=== PATIENT | male | born 1990 | race Caucasian/White ===

== ENCOUNTER 2016-11-28 03:54 | Emergency (ER) | payer SELFPAY ==
[2016-11-28 04:00] VITALS: BP 122/73
[2016-11-28] MEDS ORDERED: ONDANSETRON ODT 4 MG TAB.RAPDIS ONE (04:28)
[2016-11-28 04:48] LABS: HEMOGLOBIN ISTAT 17.3 gm/dL; POTASSIUM ISTAT 3.9 mmol/L (3.5-5.0)
[2016-11-28] MEDS ORDERED: ONDA8TAB12 PO (05:19)
--- NOTE | 2016-11-28 05:19 | PHYS DOC ---
Adult General Chief Complaint Chief Complaint: NAUSEA/VOMITING/DIARRHEA HPI HPI 26-year-old male with a history of heroin and cocaine abuse with last IV use of heroin several days ago, now presents the emergency department complaining of withdrawal symptoms. Patient states it is not of any active vomiting but he had nausea at home and has not been drinking lots of fluids. Tonight he felt lightheaded and his mother noticed so she insisted he come to the emergency department for evaluation. [place] complaints other than feeling mildly generally weak. No active vomiting or diarrhea. Denies abdominal pain or chest pain. No headache or stiff neck. Review of Systems Review of Systems Constitutional: Denies fever or chills [] Eyes: Denies change in visual acuity, redness, or eye pain [] HENT: Denies nasal congestion or sore throat [] Respiratory: Denies cough or shortness of breath [] Cardiovascular: No additional information not addressed in HPI [] GI: Denies abdominal pain, nausea, vomiting, bloody stools or diarrhea [] : Denies dysuria or hematuria [] Musculoskeletal: Denies back pain or joint pain [] Integument: Denies rash or skin lesions [] Neurologic: Denies headache, focal weakness or sensory changes [] Endocrine: Denies polyuria or polydipsia [] Current Medications Current Medications Current Medications Medications (Trade) Dose Ordered Sig/[facility] Start Time Stop Time Status Last Admin Dose Admin Ondansetron HCl (Zofran Odt) 4 mg STK-MED ONCE 11/28/16 04:28 11/28/16 04:29 DC Physical Exam Physical Exam Constitutional: Well developed, well nourished, no acute distress, non-toxic appearance. [] HENT: Normocephalic, atraumatic, bilateral external ears normal, oropharynx moist, no oral exudates, nose normal. [] Eyes: PERRLA, EOMI, conjunctiva normal, no discharge. [] Neck: Normal range of motion, no tenderness, supple, no stridor. [] Cardiovascular:Heart rate regular rhythm, no murmur [] Lungs & Thorax: Bilateral breath sounds clear to auscultation [] Abdomen: Bowel sounds normal, soft, no tenderness, no masses, no pulsatile masses. [] Skin: Warm, dry, no erythema, no rash. [] Back: No tenderness, no CVA tenderness. [] Extremities: No tenderness, no cyanosis, no clubbing, ROM intact, no edema. [] Neurologic: Alert and oriented X 3, normal motor function, normal sensory function, no focal deficits noted. [] Psychologic: Affect normal, judgement normal, mood normal. [] Current Patient Data Lab Results Laboratory Tests Test 11/28/16 04:42 POC Hemoglobin 17.3 gm/dL POC Hematocrit 51 % POC Sodium 144 mmol/L (135-145) POC Potassium 3.9 mmol/L (3.5-5.0) POC Chloride 105 mmol/L (98-110) POC Total CO2 25 mmol/L (23-32) Anion Gap 20 mmol/L (6-14) H POC Blood Urea Nitrogen 19 mg/dL (8-26) POC Creatinine 0.9 mg/dL (0.5-1.4) Glucose Level 141 mg/dL (60-99) H POC Ionized Calcium (Merry) 1.07 mmol/L (1.13-1.32) L EKG EKG [] Radiology/Procedures Radiology/Procedures [] Course & Med Decision Making Course & Med Decision Making Pertinent Labs and Imaging studies reviewed. (See chart for details) [] Signs and symptoms consistent with mild symptoms of narcotic withdrawal in a patient with an extensive history of drug abuse. Vital signs unremarkable with no tachycardia or hypotension. I-STAT unremarkable except for mild hemoconcentration. Doses. Zofran given ODT and patient tolerating by mouth fluids. EKG was normal sinus rhythm at 56 normal axis no STEMI. No further workup or treatment indicated. We'll dispense prescription for Zofran. Patient agrees with outpatient follow-up and strict return precautions given Dragon Disclaimer Dragon Disclaimer This chart was dictated in whole or in part using Voice Recognition software in a busy, high-work load, and often noisy Emergency Department environment. It may contain unintended and wholly unrecognized errors or omissions. Departure Departure: Referrals: PCP,NO (PCP) Scripts Ondansetron (ZOFRAN ODT) 8 Mg Tab.rapdis 4 MG PO Q4-6HRS Y for NAUSEA, #10 Prov: KATHARINE ZALDIVAR MD 11/28/16 KATHARINE ZALDIVAR MD Nov 28, 2016 05:19
--- NOTE | 2016-11-28 06:17 | EKG ---
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
== END 2016-11-28 05:25 | disposition home or self-care (01) ==
LOC: ER 03:54
DX: R11.0 Nausea (principal); R42 Dizziness and giddiness; R53.1 Weakness; F14.10 Cocaine abuse, uncomplicated; F19.10 Other psychoactive substance abuse, uncomplicated
CPT/HCPCS: 80047; 93005; 99283-25

== ENCOUNTER 2016-11-29 09:53 | Emergency (ER) | payer SELFPAY ==
[~2016-11-29 09:53] MED LIST: ONDA8TAB12 PO
[2016-11-29] MEDS ORDERED: IV NORMAL SALINE 1,000ML 1,000 ML IV SCH ×2 (10:29→11:40)
[2016-11-29] MEDS ORDERED: PROMETHAZINE 25 MG/ML VIAL IV ONE (10:42)
--- NOTE | 2016-11-29 10:51 | PHYS DOC ---
General Chief Complaint: NAUSEA/VOMITING/DIARRHEA Stated Complaint: N/V, HASNT EATING IN FIVE DAYS Time Seen by MD: 10:14 Source: patient, old records Exam Limitations: no limitations Problems: History of Present Illness Initial Comments Patient is a 26-year-old male who comes to the ED complaining of nausea and vomiting. Patient has extensive history of substance abuse including marijuana cocaine and heroin. He has history of an addiction to cocaine and heroin and has gone through withdrawal in the past. He states he last used illicit substances 9 days ago and for the past 5 days has had by mouth intolerance, nausea and vomiting. He says all by mouth intake, comes back up immediately and he's had decreased urination. He was seen here yesterday for the same thing his labs were unremarkable symptoms improved with Zofran by mouth and he was discharged home with a prescription for Zofran. He says the Zofran isn't working, he's had mild generalized abdominal discomfort with one loose stool days ago. He feels overall weak and lightheaded. He also states that in the past is gone through withdrawal however symptoms lasted only 3 days. He is now claiming that his symptoms could be from food poisoning as he feels possible bad food at [employer] [facility] [employer] a few days ago. His parents are in the waiting room he has told them he has food poisoning and has requested we not reveal any information to them. He denies chest pain headache neck stiffness or difficulty breathing, no fever chills sweats or myalgias. ED vital signs: 98.4, 76, 18, 129/88, 99% RA Timing/Duration: other (5 days) Severity: moderate Modifying Factors: worse with eating Associated Symptoms: nausea/vomiting, weakness Allergies: Coded Allergies: No Known Drug Allergies (Unverified , 11/29/16) Past Medical History Medical History: other (polysubstance abuse) Surgical History: noncontributory Social History Smoker: cigarettes Alcohol: none Drugs: cocaine, heroin, marijuana Review of Systems Constitutional: denies chills, denies diaphoresis, denies fever, malaise, weakness Respiratory: denies cough, denies shortness of breath, denies wheezing Cardiovascular: denies chest pain, denies palpitations, denies syncope Gastrointestinal: see HPI Genitourinary: see HPI, denies dysuria, denies frequency, denies hematuria Musculoskeletal: denies back pain, denies joint swelling, denies neck pain Psychiatric/Neurological: denies headache, denies numbness, denies paresthesia Hematologic/Lymphatic: denies blood clots, denies easy bleeding, denies easy bruising Physical Exam General Appearance: no apparent distress, thin Eyes: bilateral eye normal inspection, bilateral eye PERRL, bilateral eye EOMI Ear, Nose, Throat: hearing grossly normal, normal ENT inspection, normal pharynx (dry membranes) Neck: non-tender, supple Respiratory: normal breath sounds, no respiratory distress Cardiovascular: normal peripheral pulses, regular rate, rhythm Gastrointestinal: non tender, soft (nondistended, very mild diffuse tenderness negative Bender and negative McBurney no masses), no organomegaly Back: no CVA tenderness, no vertebral tenderness Extremities: normal range of motion, non-tender Neurologic/Psychiatric: 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 Interpreted by me PATIENT: KAYLEE HEBERT ACCOUNT: [id number] : 1990 LOCATION: ER AGE: 26 SEX: M EXAM STATUS: REG ER ORD. PHYSICIAN: KOTA AMANDA DO REASON: n/v PROCEDURE: ACUTE ABDOMEN SERIES Indication: Nausea and vomiting for 7 days. Time of exam 11 0 4:00 AM The heart size is normal. The lungs are clear. No infiltrates are detected. No free air is identified. The bowel gas pattern appears nonobstructed. No pathologic calcifications are detected. Impression: No acute feature detected. DICTATED AND SIGNED BY: MADELEINE MONTES DE OCA MD DATE: 11/29/16 1126 CC: PCP,NO; KOTA AMANDA DO ~ Hb 18.5, K+ 3.3 (will lower with hydration, klor-con PO given in ED), BUN 50, Cr 1.8, corrected calcium 9.2. All appear to be resultant from hypovolemia. Patient is feeling better after his first liter of normal saline and antiemetics IV, he is requesting ice chips or small drinks of water as he feels he can tolerate by mouth at this point. Still no urine output we will repeat 1 L normal saline bolus. 1211: Second liter bolus as completed, patient states he is feeling much better. I discussed inpatient treatment, pt refuses. He is currently trying sips of water, if if he can tolerate fluids he will be discharged home. Pt tolerated, PO water, jello, and apple juice with no further n/v. I discussed treatment plan and follow up, pt expressed agreement and understanding and will go home with parents. IMPRESSIONS: Hypovolemia with hemoconcentration Narcotic withdrawal Hypokalemia History of polysubstance abuse Tobaccoism Departure Time of Disposition: 12:24 Disposition: 01 HOME, SELF-CARE Diagnosis: Hypovolemia, Narc Withdrawal, Hemoconcent, Renal I Condition: IMPROVED Patient Instructions: Dehydration, Adult, [id number], Hypokalemia-Brief, Narcotic Withdrawal-Brief, Smoking Cessation Additional Instructions: Stop smoking, significant medical assistance if necessary. Continue to abstain from illicit narcotics. Consider Narcotics Anonymous meetings for peer support. Continue previously prescribed Zofran as needed for nausea and vomiting. Aggressive hydration with Gatorade and water. Prescriptions: Promethazine 25 mg (#10) suppositories for intractable nausea and vomiting, KCl 20 mEq #6 Follow-up with your doctor tomorrow for recheck Return to the ED with new or changing symptoms. KOTA AMANDA DO Nov 29, 2016 10:51
[2016-11-29] MEDS ORDERED: FAMOTIDINE 20 MG/2 ML VIAL IVP ONE (11:00)
[2016-11-29] MEDS ORDERED: PROMETHAZINE 25 MG SUPP.RECT. PR ONE (11:00)
[2016-11-29 11:02] LABS: ALBUMIN 5.4 g/dL (3.4-5.0); ALBUMIN/GLOBULIN RATIO 1.1 (1.0-1.7); CALCIUM 10.3 mg/dL (8.5-10.1); CREATININE 1.8 mg/dL (0.7-1.3); GFR 45.5; POTASSIUM 3.3 mmol/L (3.5-5.1); TOTAL BILIRUBIN 1.4 mg/dL (0.2-1.0); TOTAL PROTEIN 10.4 g/dL (6.4-8.2)
[2016-11-29 11:10] LABS: BASO # 0.1 x10^3/uL (0.0-0.2); BASO % 1 % (0-3); EOS % 0 % (0-3); HEMATOCRIT 51.9 % (39.0-53.0); HEMOGLOBIN 18.5 g/dL (13.0-17.5); LYMPH # 1.8 x10^3/uL (1.0-4.8); LYMPH % 17 % (24-48); MEAN CORPUSCULAR HEMOGLOBIN 30 pg (25-35); MEAN CORPUSCULAR HGB CONC 36 g/dL (31-37); MEAN CORPUSCULAR VOLUME 85 fL (79-100); MONO # 1.3 x10^3/uL (0.0-1.1); MONO % 12 % (0-9); NEUT # 7.8 x10^3uL (1.8-7.7); NEUT % 71 % (31-73); PLATELET COUNT 340 x10^3/uL (140-400); RED BLOOD COUNT 6.12 x10^6/uL (4.30-5.70); RED CELL DISTRIBUTION WIDTH 12.7 % (11.5-14.5)
--- NOTE | 2016-11-29 11:29 | RAD ---
Indication: Nausea and vomiting for 7 days. Time of exam 11 0 4:00 AM The heart size is normal. The lungs are clear. No infiltrates are detected. No free air is identified. The bowel gas pattern appears nonobstructed. No pathologic calcifications are detected. Impression: No acute feature detected.
[2016-11-29] MEDS ORDERED: PROMETHAZINE 25 MG in IV NORMAL SALINE 50ML 50 ML IV PRN (11:45)
[2016-11-29] MEDS ORDERED: POTASSIUM CHLORIDE 20 MEQ TABLET.ER. PO ONE (12:10)
[2016-11-29 12:43] VITALS: BP 125/75
--- NOTE | 2016-11-29 13:21 | EKG ---
[address] [address] Test Date: 2016-11-29 Test Time: 10:50:40 Pat Name: KAYLEE HEBERT Department: Room: Gender: M Director Drug: : 1990 Requested By: KOTA AMANDA Order Number: [id number] Reading MD: Measurements Intervals [place] Rate: 70 P: 64 FL: 148 QRS: 77 QRSD: 88 T: 65 QT: 436 QTc: 474 Interpretive Statements SINUS RHYTHM LEFT ATRIAL ABNORMALITY T ABNORMALITY IN INFERIOR LEADS PROLONGED QT RI6.01 Unconfirmed report No previous ECG available for comparison
== END 2016-11-29 12:45 | disposition home or self-care (01) ==
LOC: ER 09:53
DX: E86.1 Hypovolemia (principal); E87.6 Hypokalemia; F11.23 Opioid dependence with withdrawal; F14.10 Cocaine abuse, uncomplicated; F17.210 Nicotine dependence, cigarettes, uncomplicated; F12.10 Cannabis abuse, uncomplicated; N28.9 Disorder of kidney and ureter, unspecified
CPT/HCPCS: 36415; 74022; 80053; 82550; 83690; 84484; 85027; 93005; 96365; 96375; 99285; J2550; S0028; J7030

== ENCOUNTER 2016-11-29 23:44 | Inpatient (IN) | payer SELFPAY ==
[~2016-11-29] VITALS: Ht 182.9 cm; Wt 68.1 kg
[2016-11-30] MEDS ORDERED: IV NORMAL SALINE 1,000ML 1,000 ML IV SCH (00:30)
[2016-11-30] MEDS ORDERED: ONDANSETRON PF 4 MG/2 ML VIAL. IV ONE (00:30)
[2016-11-30 02:16] LABS: BASO # 0.1 x10^3/uL (0.0-0.2); BASO % 1 % (0-3); EOS % 0 % (0-3); HEMATOCRIT 48.1 % (39.0-53.0); HEMOGLOBIN 16.9 g/dL (13.0-17.5); LYMPH # 1.8 x10^3/uL (1.0-4.8); LYMPH % 19 % (24-48); MEAN CORPUSCULAR HEMOGLOBIN 30 pg (25-35); MEAN CORPUSCULAR HGB CONC 35 g/dL (31-37); MEAN CORPUSCULAR VOLUME 86 fL (79-100); MONO % 11 % (0-9); NEUT # 6.3 x10^3uL (1.8-7.7); NEUT % 69 % (31-73); PLATELET COUNT 268 x10^3/uL (140-400); RED BLOOD COUNT 5.57 x10^6/uL (4.30-5.70); RED CELL DISTRIBUTION WIDTH 12.6 % (11.5-14.5); WHITE BLOOD COUNT 9.1 x10^3/uL (4.0-11.0)
[2016-11-30 02:23] LABS: BARBITURATES NEG (NEG); BENZODIAZEPINES NEG (NEG); CANNABINOIDS NEG (NEG); COCAINE POS (NEG); METHADONE NEG (NEG); OPIATES POS (NEG); PHENCYCLIDINE NEG (NEG)
[2016-11-30 02:26] LABS: BACTERIA,URINE 0 /HPF (0-FEW); BILIRUBIN,URINE NEG (NEG); CLARITY,URINE CLEAR; COLOR,URINE YELLOW; GLUCOSE,URINE NEG (NEG); NITRITE,URINE NEG (NEG); RBC,URINE 0 /HPF (0-2); SQUAMOUS EPITHELIAL CELL,UR OCC /LPF; UROBILINOGEN,URINE 2 mg/dL (0.2 mg/dL)
[2016-11-30 02:27] LABS: ALBUMIN 4.6 g/dL (3.4-5.0); ALBUMIN/GLOBULIN RATIO 1.1 (1.0-1.7); CALCIUM 9.5 mg/dL (8.5-10.1); CREATININE 1.1 mg/dL (0.7-1.3); GFR 80.3; POTASSIUM 3.2 mmol/L (3.5-5.1); TOTAL BILIRUBIN 1.9 mg/dL (0.2-1.0); TOTAL PROTEIN 8.7 g/dL (6.4-8.2)
[2016-11-30 02:27] LABS: AMPHETAMINE/METHAMPHETAMINE NEG (NEG)
[2016-11-30 02:30] LABS: MONONUCLEOSIS PATIENT NEGATIVE (NEGATIVE)
[2016-11-30] MEDS ORDERED: IOHEXOL 300 MG/ML 75 ML VIAL. IV ONE (03:00)
[2016-11-30] MEDS ORDERED: CONTRAST GIVEN MC PRN (03:00)
--- NOTE | 2016-11-30 03:45 | RAD ---
EXAM: Abdomen and pelvis CT without intravenous contrast. HISTORY: 26-year-old male with nausea, vomiting and diarrhea for 3 days. TECHNIQUE: Computed tomographic images of the abdomen and pelvis were obtained without contrast. Multiplanar reformatting was performed. PQRS compliance statement: One or more of the following individualized dose reduction techniques were utilized for this examination: 1. Automated exposure control 2. Adjustment of the mA and/or kV according to patient size 3. Use of iterative reconstruction technique COMPARISON: None. FINDINGS: The lung bases demonstrate no acute finding. Detailed evaluation of the intra-abdominal and pelvic organs and vascular structures is limited secondary to lack of IV contrast. Hepatomegaly is present, measuring at least 20 cm in craniocaudal dimension. The gallbladder is mostly decompressed with likely resulting prominence of the wall. No calcified gallstones are seen nor pericholecystic fluid. The spleen is also prominent in size measuring up to 15 cm. The visualized pancreas, adrenal glands, and bilateral kidneys demonstrate no focal abnormality. No nephrolithiasis or hydronephrosis is seen. The GI tract demonstrates no dilated bowel loops to suggest obstruction. The appendix is partially visualized in the right hemipelvis, appearing normal in caliber with scattered air within the visualized lumen. No adjacent soft tissue stranding is seen. The urinary bladder is grossly unremarkable. No intra-abdominal or pelvic free fluid, free air or significant lymphadenopathy is seen. Aorta is normal in caliber. Overlying soft tissues and visualized osseous structures demonstrate no acute or suspicious finding. IMPRESSION: No acute intra-abdominal or pelvic process seen. Hepatosplenomegaly. Electronically signed by: Mayrbel Levi MD (11/30/2016 3:42 AM)
[2016-11-30] MEDS ORDERED: ONDANSETRON ODT 4 MG TAB.RAPDIS PO ONE (04:30)
[2016-11-30] MEDS ORDERED: IV NORMAL SALINE 1,000ML 1,000 ML IV ONE (04:30)
--- NOTE | 2016-11-30 04:42 | ED.ADGEN ---
Past History Past Medical History: No Pertinent History Past Surgical History: No Surgical History Alcohol Use: Rarely Drug Use: None Adult General HPI HPI Patient is a 26-year-old man, history of IV drug use, who presents to the emergency department with a six-day history of nausea, vomiting, abdominal pain. Patient states he has lost weight due to persistent vomiting. Patient was seen several days ago for these complaints, states he had several episodes of diarrhea at that time, but none since then, and was given Zofran. He states he continued to have persistent vomiting despite use of the medication. Patient was evaluated earlier today at [facility] for the same complaints, laboratory studies were performed, and acute abdominal series performed, and patient was discharged home after he was feeling better after receiving IV fluids and antiemetics, with a prescription for potassium and rectal suppositories. Patient states that vomiting has persisted despite use of suppositories. His last bowel was today and was normal, no diarrhea, emesis is food and fluid, no blood. Patient states that abdominal cramping is located in his upper abdomen, epigastric region, denies any fevers or chills, any travel or surgery, states that he had "maybe some bad [employer]", before symptoms began , and states he's been unable to keep much down since that time. Family is at bedside with patient. He denies any injuries, any other exposures, no chest pain , shortness of breath, no urinary complaints, no back or flank pain, no weakness , numbness, tingling, headache, vision changes or other complaints. No rashes or swelling extremities. Review of Systems Review of Systems Constitutional: Denies fever or chills [] Eyes: Denies change in visual acuity, redness, or eye pain [] HENT: Denies nasal congestion or sore throat [] Respiratory: Denies cough or shortness of breath [] Cardiovascular: No additional information not addressed in HPI [] GI: Abdominal pain, in the epigastric region, nausea, vomiting, no bloody stools or diarrhea. : Denies dysuria or hematuria [] Musculoskeletal: Denies back pain or joint pain [] Integument: Denies rash or skin lesions [] Neurologic: Denies headache, focal weakness or sensory changes [] Endocrine: Denies polyuria or polydipsia [] Current Medications Current Medications Current Medications Medications (Trade) Dose Ordered Sig/Ck Start Time Stop Time Status Last Admin Dose Admin Acetaminophen (Tylenol) 650 mg PRN Q4HRS PRN 11/30/16 05:15 12/01/16 05:14 UNV Dicyclomine HCl (Bentyl) 20 mg PRN QID PRN 11/30/16 05:15 UNV Info (Do NOT chart on this entry -- for MONITORING) 1 each PRN DAILY PRN 11/30/16 03:00 12/02/16 02:59 Iohexol (Omnipaque 300 Mg/ml) 75 ml 1X ONCE 11/30/16 03:00 11/30/16 03:01 DC Ketorolac Tromethamine (Toradol) 10 mg PRN Q6HRS PRN 11/30/16 05:15 12/05/16 05:14 UNV Multivitamins/ Minerals 10 ml/ Folic Acid 1 mg/ Thiamine HCl 100 mg/Potassium Chloride 40 meq/ Dextrose/Sodium Chloride 1,031.2 ml @ 125 mls/ hr 1X ONCE 11/30/16 05:15 11/30/16 13:29 UNV Ondansetron HCl (Zofran Odt) 4 mg 1X ONCE 11/30/16 04:30 11/30/16 04:44 DC 11/30/16 04:30 4 MG Ondansetron HCl (Zofran) 4 mg PRN Q4HRS PRN 11/30/16 05:15 12/01/16 05:14 UNV Potassium Chloride (KCl Oral Soln) 40 meq 1X ONCE 11/30/16 04:45 11/30/16 04:46 DC 11/30/16 04:44 40 MEQ Sodium Chloride 1,000 ml @ 125 mls/hr Q8H 11/30/16 05:04 12/01/16 05:03 UNV Allergies Allergies Allergies Coded Allergies Type Severity Reaction Last Updated Verified No Known Drug Allergies 11/29/16 No Physical Exam Physical Exam Constitutional: Well developed, well nourished, no acute distress, non-toxic appearance. [] HENT: Normocephalic, atraumatic, bilateral external ears normal, oropharynx moist, no oral exudates, nose normal. [] Eyes: PERRLA, EOMI, conjunctiva normal, no discharge. [] Neck: Normal range of motion, no tenderness, supple, no stridor. [] Cardiovascular:Heart rate regular rhythm, no murmur, S1, S2, rubs or gallops. [] Lungs & Thorax: Bilateral breath sounds clear to auscultation, no wheezing, rhonchi, rales. No chest or crepitus or tenderness. [] Abdomen: Bowel sounds normal, soft, no rebound, rigidity, no guarding, mild tenderness palpation in the epigastric region, negative Bender sign, no masses, no pulsatile masses. [] Skin: Warm, dry, no erythema, no rash. [] Back: No tenderness, no CVA tenderness. [] Extremities: No tenderness, no cyanosis, no clubbing, ROM intact, no edema. [] Neurologic: Alert and oriented X 3, normal motor function, normal sensory function, no focal deficits noted. [] Psychologic: Affect normal, judgement normal, mood normal. [] Current Patient Data Vital Signs Vital Signs Date Time Temp Pulse Resp B/P (MAP) Pulse Ox O2 Delivery O2 Flow Rate FiO2 11/30/16 04:26 75 16 135/80 (98) 99 Room Air 11/29/16 23:50 98.4 Lab Results Laboratory Tests Test 11/30/16 01:45 11/30/16 01:49 11/30/16 01:55 Urine Collection Type Unknown Urine Color Yellow Urine Clarity Clear Urine pH 7.0 Urine Specific [place] 1.015 Urine Protein 30 mg/dl (NEG-TRACE) Urine Glucose (UA) Neg mg/dL (NEG) Urine Ketones (Stick) Neg mg/dL (NEG) Urine Blood Neg (NEG) Urine Nitrite Neg (NEG) Urine Bilirubin Neg (NEG) Urine Urobilinogen Dipstick 2 mg/dL (0.2 mg/dL) Urine Leukocyte Esterase Neg (NEG) Urine RBC 0 /HPF (0-2) Urine WBC 1-4 /HPF (0-4) Urine Squamous Epithelial Cells Occ /LPF Urine Bacteria 0 /HPF (0-FEW) Urine Opiates Screen Pos (NEG) Urine Methadone Screen Neg (NEG) Urine Barbiturates Neg (NEG) Urine Phencyclidine Screen Neg (NEG) Urine Amphetamine/Methamphetamine Neg (NEG) Urine Benzodiazepines Screen Neg (NEG) Urine Cocaine Screen Pos (NEG) Urine Cannabinoids Screen Neg (NEG) Urine Ethyl Alcohol Neg (NEG) Group A Streptococcus Rapid Negative (NEGATIVE) White Blood Count 9.1 x10^3/uL (4.0-11.0) Red Blood Count 5.57 x10^6/uL (4.30-5.70) Hemoglobin 16.9 g/dL (13.0-17.5) Hematocrit 48.1 % (39.0-53.0) Mean Corpuscular Volume 86 fL (79-100) Mean Corpuscular Hemoglobin 30 pg (25-35) Mean Corpuscular Hemoglobin Concent 35 g/dL (31-37) Red Cell Distribution Width 12.6 % (11.5-14.5) Platelet Count 268 x10^3/uL (140-400) Neutrophils (%) (Auto) 69 % (31-73) Lymphocytes (%) (Auto) 19 % (24-48) L Monocytes (%) (Auto) 11 % (0-9) H Eosinophils (%) (Auto) 0 % (0-3) Basophils (%) (Auto) 1 % (0-3) Neutrophils # (Auto) 6.3 x10^3uL (1.8-7.7) Lymphocytes # (Auto) 1.8 x10^3/uL (1.0-4.8) Monocytes # (Auto) 1.0 x10^3/uL (0.0-1.1) Eosinophils # (Auto) 0.0 x10^3/uL (0.0-0.7) Basophils # (Auto) 0.1 x10^3/uL (0.0-0.2) Sodium Level 140 mmol/L (136-145) Potassium Level 3.2 mmol/L (3.5-5.1) L Chloride Level 98 mmol/L (98-107) Carbon Dioxide Level 33 mmol/L (21-32) H Anion Gap 9 (6-14) Blood Urea Nitrogen 30 mg/dL (8-26) H Creatinine 1.1 mg/dL (0.7-1.3) Estimated GFR (Cockcroft-Gault) 80.3 BUN/Creatinine Ratio 27 (6-20) H Glucose Level 126 mg/dL (70-99) H Lactic Acid Level 0.8 mmol/L (0.4-2.0) Calcium Level 9.5 mg/dL (8.5-10.1) Total Bilirubin 1.9 mg/dL (0.2-1.0) H Aspartate Amino Transferase (AST) 48 U/L (15-37) H Alanine Aminotransferase (ALT) 55 U/L (16-63) Alkaline Phosphatase 168 U/L (46-116) H Total Protein 8.7 g/dL (6.4-8.2) H Albumin 4.6 g/dL (3.4-5.0) Albumin/Globulin Ratio 1.1 (1.0-1.7) Lipase 99 U/L (73-393) Heterophil Agglutinins Negative (NEGATIVE) Radiology/Procedures Radiology/Procedures [][address] [address] IMAGING REPORT Signed PATIENT: KAYLEE HEBERT ACCOUNT: [id number] : 1990 LOCATION: ER AGE: 26 SEX: M EXAM STATUS: REG ER ORD. PHYSICIAN: CLIF MCCALLUM DO REASON: abd pain/n/v x 6 days PROCEDURE: CT ABDOMEN PELVIS WO CONTRAST EXAM: Abdomen and pelvis CT without intravenous contrast. HISTORY: 26-year-old male with nausea, vomiting and diarrhea for 3 days. TECHNIQUE: Computed tomographic images of the abdomen and pelvis were obtained without contrast. Multiplanar reformatting was performed. PQRS compliance statement: One or more of the following individualized dose reduction techniques were utilized for this examination: 1. Automated exposure control 2. Adjustment of the mA and/or kV according to patient size 3. Use of iterative reconstruction technique COMPARISON: None. FINDINGS: The lung bases demonstrate no acute finding. Detailed evaluation of the intra-abdominal and pelvic organs and vascular structures is limited secondary to lack of IV contrast. Hepatomegaly is present, measuring at least 20 cm in craniocaudal dimension. The gallbladder is mostly decompressed with likely resulting prominence of the wall. No calcified gallstones are seen nor pericholecystic fluid. The spleen is also prominent in size measuring up to 15 cm. The visualized pancreas, adrenal glands, and bilateral kidneys demonstrate no focal abnormality. No nephrolithiasis or hydronephrosis is seen. The GI tract demonstrates no dilated bowel loops to suggest obstruction. The appendix is partially visualized in the right hemipelvis, appearing normal in caliber with scattered air within the visualized lumen. No adjacent soft tissue stranding is seen. The urinary bladder is grossly unremarkable. No intra-abdominal or pelvic free fluid, free air or significant lymphadenopathy is seen. Aorta is normal in caliber. Overlying soft tissues and visualized osseous structures demonstrate no acute or suspicious finding. IMPRESSION: No acute intra-abdominal or pelvic process seen. Hepatosplenomegaly. Electronically signed by: Vania Levi MD (11/30/2016 3:42 AM) DICTATED AND SIGNED BY: VANIA LEVI MD DATE: 11/30/16 0334 CC: CLIF MCCALLUM DO; PCP,NO ~ Course & Med Decision Making Course & Med Decision Making Patient with one episode of emesis upon arrival to the emergency department, is complaining of cramping abdominal pain, nausea. Delay in obtaining access and laboratory studies, due to requiring multiple attempts to obtain IV access and bloods. Left EJ was placed, patient is agreeable to receiving laboratory studies imaging, and treatment with antiemetics and fluids in the ED. Was administered 1 L fluid, and Zofran, with no further vomiting in the ED. States he is feeling better on reevaluation. CT of the abdomen and pelvis obtained, due to persistence of symptoms after discussion at bedside, limited due to lack of IV contrast, due to IV placement. Does not reveal any evidence of abnormality or infection, noted to have hepatosplenomegaly. Laboratory studies revealed potassium of 3.2, consistent with the patient's prior hypokalemia, creatinine is 1.1 at this time, from 1.8, with a blood urea nitrogen of 30. Mononucleosis and strep swabs were negative the ED. Patient states his last HIV test was about a year ago, he states he was after his last use of IV drugs. Patient however is positive for cocaine in the ED. HIV antibody test also sent, due to patient's history and persistent symptoms. This is a send out test, and will not be available during this patient's visit. I did discuss these findings and pending test with patient, on reevaluation, he states he is feeling better, and would like an oral trial. Patient attempted to take oral fluids in the ED, states that after taking only a few sips he is extremely nauseated. Is concerned that he is going to begin vomiting again. As patient has received both IV and rectal medications, along with 2 L IV fluid, and has persistent symptoms even after all of these interventions, after discussion at bedside patient is agreeable for admission to the hospital for treatment of intractable nausea and vomiting. I did discuss findings as above with Dr. Leone, hospitalist on-call, patient was accepted his service for admission to the medical surgical floor, continued IV hydration, symptom management, and advancement of diet as tolerated. Final Impression Final Impression [] Problems: Dragon Disclaimer Dragon Disclaimer This electronic medical record was generated, in whole or in part, using a voice recognition dictation system. Departure: Impression: Primary Impression: Intractable nausea and vomiting Additional Impressions: Hepatosplenomegaly Cocaine abuse IVDU (intravenous drug user) Disposition: ADMITTED INPATIENT Admitting Physician: Jw Leone Condition: IMPROVED CLIF MCCALLUM DO Nov 30, 2016 04:42
[2016-11-30] MEDS ORDERED: POTASSIUM CHLORIDE 20 MEQ/15 ML ORAL LIQUID. PO ONE (04:45)
[2016-11-30] MEDS ORDERED: ACETAMINOPHEN 325 MG TABLET PO PRN (05:30)
[2016-11-30] MEDS ORDERED: KETOROLAC 15 MG/ML VIAL. IV PRN (05:30)
[2016-11-30] MEDS ORDERED: [UNRECOGNIZED DRUG - REMARK] IV ONE ×5 (05:45)
[2016-11-30] MEDS ORDERED: MVI, ADULT NO.4 WITH VIT K 10 ML VIAL IV ONE (07:26)
[2016-11-30] MEDS: IV NORMAL SALINE 1,000ML 1,000 ML IV SCH ×2 (07:50→11:24)
[2016-11-30 08:02] VITALS: BP 114/71
[2016-11-30] MEDS: DICYCLOMINE HCL 20 MG TABLET PO PRN ×2 (08:02→12:03)
[2016-11-30] MEDS: ONDANSETRON PF 4 MG/2 ML VIAL. IV PRN ×2 (08:02→12:03)
--- NOTE | 2016-11-30 09:52 | ACF ---
Admission Criteria Forms VOMITING Clinical Indications for Admission to Inpatient Care ( Place 'X' for any and all applicable criteria): Admission is indicated for 1 or more of the following(1)(2)(3): [ ]I. Complete or partial gastrointestinal obstruction [ ]II. Vomiting due to significant metabolic derangement (eg, severe hypercalcemia, diabetic ketoacidosis) [ ]III. Other cause of vomiting requiring hospitalization (eg, poisoning, increased intracranial pressure) [X]IV. Inpatient admission required rather than observation care because of 1 or more of the following [ ]i) Hemodynamic instability [X]ii) Vomiting that is severe or persistent indicated by 1 or more of the following 1) Numerous episodes of vomiting in past 24hours (eg, every 1 to 2 hours) 2) Suggests severe underlying cause or complication (eg , projectile, feculent, bilious, coffee ground, bloody) [X]3) Appropriate antiemetic treatment (eg, repeated oral or parenteral dosing) does not sufficiently reduce vomiting within 12 to 24 hours of treatment 4) Treatment regimen necessary to adequately control vomiting requires inpatient level of care (eg, not immediately available in outpatient setting) [ ]iii) Severe electrolyte abnormalities requiring inpatient care [ ]iv) Severe pain requiring acute inpatient management( Continuous or frequent (eg, every 2 to 4 hours) parental analgesics or analgesic regimen that can only be performed or initiated in inpatient setting) [ ]v) High fever or infection requiring inpatient admission as indicated by 1 or more of the following(7)(8): [ ]1) Appropriate outpatient or observation care antimicrobial treatment unavailable, not effective, or not feasible [ ]2) Documented bacteremia [ ]3) Temp >104.9 degrees F (40.5 degrees C) (oral) [ ]4) Temp >103.1 degrees F (39.5 C) (oral) or <96.8 degrees F (36 C) (rectal) that does not respond to all emergency treatment measures [ ]vi) Acute renal failure [ ]vii) IV fluid required rather than oral rehydration to replace significant on going losses (greater than 3 L/m2 per day) [ ]viii) Parenteral nutrition regimen that must be implemented on inpatient basis [ ]ix) Other condition, treatment or monitoring requiring inpatient admission Extended stay beyond goal length of stay may be needed for(1)(4): [ ]a) Severe vomiting [ ]b) Persistent vomiting, vital sign changes, severe electrolyte imbalance , or diagnosed cause of vomiting that requires continued hospitalization (eg, gastrointestinal obstruction , increased intracranial pressure) [ ]c) Surgery to treat identified causes of vomiting (eg, bowel obstruction , intracranial process) [ ]d) Comorbid illness that requires inpatient care (eg, acute heart failure , renal failure) [ ]e) Need for inpatient endoscopy The original [employer] content created by [employer] has been revised. The portions of the content which have been revised are identified through the use of italic text or in bold, and [facility] has neither reviewed nor approved the modified material. All other unmodified content is copyright [employer]. Please see references footnoted in the original [facility] edition 2016 Admission Criteria Met?: Yes SHANTI AVILES Nov 30, 2016 09:52
[2016-11-30 10:26] VITALS: BP 129/83
[2016-11-30] MEDS ORDERED: PANTOPRAZOLE 40 MG TABLET. PO ONE (13:20)
--- NOTE | 2016-11-30 14:21 | PDOC1 ---
History of Present Illness History of Present Illness This is a 26-year-old male who was at the emergency room again for the third time complaining of nausea and vomiting and not being able to keep anything down. Reports6 day history of nausea and vomiting as well. Patient states that he he has a long-standing problem with heroin and cocaine. He has had a lot of problems in the past he has been clean for multiple months and then relapses. This time he has to quit more we will go to senior care. He reports eating coccal fell last Saturday and has been sick ever since. He was sent he was given IV fluids as well as prescription for potassium rectal suppositories however has not been helping. States does not share needles with other users. States must get clean or will go to senior care for 10 years. Chief Complaint: NAUSEA/VOMITING/DIARRHEA Allergies: Coded Allergies: No Known Drug Allergies (Unverified , 11/29/16) Past Medical History Cardiac: No pertinent hx Pulmonary: No pertinent hx GI: No pertinent hx Heme/Onc: No pertinent hx Hepatobiliary: No pertinent hx Psych: No pertinent hx Musculoskeletal: No pertinent hx Rheumatologic: No pertinent hx Infectious disease: No pertinent hx ENT: No pertinent hx Renal/: No pertinent hx Endocrine: No pertinent hx Dermatology: Other (multiple areas on body affected by IV drug use) Past Surgical History: No pertinent history Family History: No pertinent hx Past Social History Smoke: <1 pack per day Alcohol: rare Drugs: Cocaine, Heroin (lonstanding problem with IV cocaine and heroin, states none in 10 days) Lives: with Family (Spent 3 years in the [place], is currently in trouble with the 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 See HPI for pertinent positives and negative responses, other hunt all other systems are negative, non pertinent or non contributory Constitutional: Other (reports a 40 pound weight loss, used to weigh 180. doesn't know time froame of loss) Eyes: No: Blurry vision, Decreased vision, Double vision, Dry eyes, Excessive tearing, Eye Pain, Itchy Eyes, Loss of vision, Photophobia, [place], Uses contacts, Uses glasses ENT: No: Ear pain, Ear discharge, Nose pain, Nose discharge, Nose congestion, Mouth pain, Mouth swelling, Throat pain, Throat swelling Respiratory: No: Cough, Hemoptysis, Orthopnea, Pleuritic Pain, Shortness of breath, SOB with excertion, Sputum Changes, Stridor, Tachypnea, Wheezing Gastrointestinal: YES: Nausea, Vomiting, Abdominal Pain, Diarrhea Genitourinary: No: Change in Menstrual Cycle, Dysmenorrhea, Dyspareunia, Dysuria, Flank Pain, Genital Discharge, Genital Ulcers, Henaturia, Incontinence , Irregular/heavy Menses, Nocturia, Pelvic Pain, Scrotal Mass/pain, Slowing Urinary Stream, Urinary Frequency/urgency, Vulvar/vaginal Symptoms, Other SKIN: YES: Other (skin lesions from IV drug use) Neurological: No: Behavorial Changes, Bowel/Bladder ControlChng, Confusion, Dizziness, Gait Disturbance, Headaches, Impaired Coord/balance, Memory Loss, Numbness/Tingling, Seizures, Speech Problems, Tremors, Visual Changes, Weakness Allergies: Coded Allergies: No Known Drug Allergies (Unverified , 11/29/16) Medications Current Medications Sodium Chloride 1,000 ml @ 1,000 mls/hr Q1H IV Last administered on 11/30/16 02:50; Start 11/30/16 at 00:30; Stop 11/30/16 at 02:49; Status DC Ondansetron HCl (Zofran) 4 mg 1X ONCE IV Last administered on 11/30/16 02:50 ; Start 11/30/16 at 00:30; Stop 11/30/16 at 02:49; Status DC Iohexol (Omnipaque 300 Mg/ml) 75 ml 1X ONCE IV ; Start 11/30/16 at 03:00; Stop 11/30/16 at 03:01; Status DC Info (Do NOT chart on this entry -- for MONITORING) 1 each PRN DAILY PRN MC SEE COMMENTS; Start 11/30/16 at 03:00; Stop 12/02/16 at 02:59 Potassium Chloride (KCl Oral Soln) 40 meq 1X ONCE PO Last administered on 11/30 04:44; Start 11/30/16 at 04:45; Stop 11/30/16 at 04:46; Status DC Ondansetron HCl (Zofran Odt) 4 mg 1X ONCE PO Last administered on 11/30/16 04 :30; Start 11/30/16 at 04:30; Stop 11/30/16 at 04:44; Status DC Sodium Chloride 1,000 ml @ 1,000 mls/hr 1X ONCE IV Last administered on 04:30; Start 11/30/16 at 04:30; Stop 11/30/16 at 05:29; Status DC Multivitamins/ Minerals 10 ml/ Folic Acid 1 mg/ Thiamine HCl 100 mg/Potassium Chloride 40 meq/ Dextrose/Sodium Chloride 1,031.2 ml @ 125 mls/ hr 1X ONCE IV Last administered on 11/30/16 07:49; Start 11/30/16 at 05:45; Stop 11/30/16 at 13:59; Status DC Ondansetron HCl (Zofran) 4 mg PRN Q4HRS PRN IV NAUSEA/VOMITING Last administered on 11/30/16 12:03; Start 11/30/16 at 05:30; Stop 12/01/16 at 05:29 Sodium Chloride 1,000 ml @ 125 mls/hr Q8H IV Last administered on 11/30/16 07 :50; Start 11/30/16 at 05:15; Stop 12/01/16 at 05:14 Acetaminophen (Tylenol) 650 mg PRN Q4HRS PRN PO FEVER; Start 11/30/16 at 05:30 ; Stop 12/01/16 at 05:29 Dicyclomine HCl (Bentyl) 20 mg PRN QID PRN PO ABDOMINAL PAIN Last administered on 11/30/16 12:03; Start 11/30/16 at 05:30 Ketorolac Tromethamine (Toradol) 10 mg PRN Q6HRS PRN IV PAIN; Start 11/30/16 at 05:30; Stop 12/05/16 at 05:29 Multivitamins/ Minerals (Infuvite Adult) 10 ml STK-MED ONCE IV ; Start 11/30/16 at 07:26; Stop 11/30/16 at 07:27; Status DC Pantoprazole Sodium (Protonix) 40 mg 1X ONCE PO Last administered on 13:45; Start 11/30/16 at 13:20; Stop 11/30/16 at 13:21; Status DC Active Scripts Active Zofran Odt (Ondansetron) 8 Mg Tab.rapdis 4 Mg PO Q4-6HRS PRN Exam Vital Signs Vital Signs Date Time Temp Pulse Resp B/P (MAP) Pulse Ox O2 Delivery O2 Flow Rate FiO2 11/30/16 10:26 98.6 57 20 129/83 (98) 99 Room Air General Appearance: Alert, Oriented X3, Cooperative HEENT: Atraumatic, PERRLA, Mucous membr. moist/pink Respiratory: Clear to auscultation, Normal air movement Heart: Regular rate, Normal S1, Normal S2, No murmurs Abdominal: Other (liver and spleen palpated below the ribs, mildly tender over the spleen, no epigastric tenderness) Extremities: No clubbing, No cyanosis, No edema, Normal pulses, No tenderness/ swelling Skin: No rashes (skin with multiple areas on abdomen, arms from IV drug use) Psych/Mental Status: Mental status NL, Mood NL Assessment/Plan Assessment/Plan #1 nausea vomiting and diarrhea improving slightly and has not vomited since last evening #2 IV drug IV drug use of heroin and cocaine, drug screen positive for opiates heroin and cocaine #3 Reported 40 pound weight loss question etiology #4 elevated liver function tests #[address] 6 hypokalemia being replaced Plan: Must check HIV and hepatitis profile. His receiving a banana bag and antiemetics. Try to advance diet and plan for discharge. Recheck electrolytes. COURSE Allergies Coded Allergies Type Severity Reaction Last Updated Verified No Known Drug Allergies 11/29/16 No Laboratory Tests Test 11/30/16 01:45 11/30/16 01:49 11/30/16 01:55 Urine Collection Type Unknown Urine Color Yellow Urine Clarity Clear Urine pH 7.0 Urine Specific [place] 1.015 Urine Protein 30 mg/dl (NEG-TRACE) Urine Glucose (UA) Neg mg/dL (NEG) Urine Ketones (Stick) Neg mg/dL (NEG) Urine Blood Neg (NEG) Urine Nitrite Neg (NEG) Urine Bilirubin Neg (NEG) Urine Urobilinogen Dipstick 2 mg/dL (0.2 mg/dL) Urine Leukocyte Esterase Neg (NEG) Urine RBC 0 /HPF (0-2) Urine WBC 1-4 /HPF (0-4) Urine Squamous Epithelial Cells Occ /LPF Urine Bacteria 0 /HPF (0-FEW) Urine Opiates Screen Pos (NEG) Urine Methadone Screen Neg (NEG) Urine Barbiturates Neg (NEG) Urine Phencyclidine Screen Neg (NEG) Urine Amphetamine/Methamphetamine Neg (NEG) Urine Benzodiazepines Screen Neg (NEG) Urine Cocaine Screen Pos (NEG) Urine Cannabinoids Screen Neg (NEG) Urine Ethyl Alcohol Neg (NEG) Group A Streptococcus Rapid Negative (NEGATIVE) White Blood Count 9.1 x10^3/uL (4.0-11.0) Red Blood Count 5.57 x10^6/uL (4.30-5.70) Hemoglobin 16.9 g/dL (13.0-17.5) Hematocrit 48.1 % (39.0-53.0) Mean Corpuscular Volume 86 fL (79-100) Mean Corpuscular Hemoglobin 30 pg (25-35) Mean Corpuscular Hemoglobin Concent 35 g/dL (31-37) Red Cell Distribution Width 12.6 % (11.5-14.5) Platelet Count 268 x10^3/uL (140-400) Neutrophils (%) (Auto) 69 % (31-73) Lymphocytes (%) (Auto) 19 % (24-48) Monocytes (%) (Auto) 11 % (0-9) Eosinophils (%) (Auto) 0 % (0-3) Basophils (%) (Auto) 1 % (0-3) Neutrophils # (Auto) 6.3 x10^3uL (1.8-7.7) Lymphocytes # (Auto) 1.8 x10^3/uL (1.0-4.8) Monocytes # (Auto) 1.0 x10^3/uL (0.0-1.1) Eosinophils # (Auto) 0.0 x10^3/uL (0.0-0.7) Basophils # (Auto) 0.1 x10^3/uL (0.0-0.2) Sodium Level 140 mmol/L (136-145) Potassium Level 3.2 mmol/L (3.5-5.1) Chloride Level 98 mmol/L (98-107) Carbon Dioxide Level 33 mmol/L (21-32) Anion Gap 9 (6-14) Blood Urea Nitrogen 30 mg/dL (8-26) Creatinine 1.1 mg/dL (0.7-1.3) Estimated GFR (Cockcroft-Gault) 80.3 BUN/Creatinine Ratio 27 (6-20) Glucose Level 126 mg/dL (70-99) Lactic Acid Level 0.8 mmol/L (0.4-2.0) Calcium Level 9.5 mg/dL (8.5-10.1) Magnesium Level 2.4 mg/dL (1.8-2.4) Total Bilirubin 1.9 mg/dL (0.2-1.0) Aspartate Amino Transf (AST/SGOT) 48 U/L (15-37) Alanine Aminotransferase (ALT/SGPT) 55 U/L (16-63) Alkaline Phosphatase 168 U/L (46-116) Total Protein 8.7 g/dL (6.4-8.2) Albumin 4.6 g/dL (3.4-5.0) Albumin/Globulin Ratio 1.1 (1.0-1.7) Lipase 99 U/L (73-393) Heterophil Agglutinins Negative (NEGATIVE) Current Medications Medications (Trade) Dose Ordered Sig/Ck Route PRN Reason Start Time Stop Time Status Last Admin Dose Admin Sodium Chloride 1,000 ml @ 1,000 mls/hr Q1H IV 11/30/16 00:30 11/30/16 02:49 DC 11/30/16 02:50 Ondansetron HCl (Zofran) 4 mg 1X ONCE IV 11/30/16 00:30 11/30/16 02:49 DC 11/30/16 02:50 Iohexol (Omnipaque 300 Mg/ml) 75 ml 1X ONCE IV 11/30/16 03:00 11/30/16 03:01 DC Info (Do NOT chart on this entry -- for MONITORING) 1 each PRN DAILY PRN MC SEE COMMENTS 11/30/16 03:00 12/02/16 02:59 Potassium Chloride (KCl Oral Soln) 40 meq 1X ONCE PO 11/30/16 04:45 11/30/16 04:46 DC 11/30/16 04:44 Ondansetron HCl (Zofran Odt) 4 mg 1X ONCE PO 11/30/16 04:30 11/30/16 04:44 DC 11/30/16 04:30 Sodium Chloride 1,000 ml @ 1,000 mls/hr 1X ONCE IV 11/30/16 04:30 11/30/16 05:29 DC 11/30/16 04:30 Multivitamins/ Minerals 10 ml/ Folic Acid 1 mg/ Thiamine HCl 100 mg/Potassium Chloride 40 meq/ Dextrose/Sodium Chloride 1,031.2 ml @ 125 mls/ hr 1X ONCE IV 11/30/16 05:45 11/30/16 13:59 DC 11/30/16 07:49 Ondansetron HCl (Zofran) 4 mg PRN Q4HRS PRN IV NAUSEA/VOMITING 11/30/16 05:30 12/01/16 05:29 11/30/16 12:03 Sodium Chloride 1,000 ml @ 125 mls/hr Q8H IV 11/30/16 05:15 12/01/16 05:14 11/30/16 07:50 Acetaminophen (Tylenol) 650 mg PRN Q4HRS PRN PO FEVER 11/30/16 05:30 12/01/16 05:29 Dicyclomine HCl (Bentyl) 20 mg PRN QID PRN PO ABDOMINAL PAIN 11/30/16 05:30 11/30/16 12:03 Ketorolac Tromethamine (Toradol) 10 mg PRN Q6HRS PRN IV PAIN 11/30/16 05:30 12/05/16 05:29 Multivitamins/ Minerals (Infuvite Adult) 10 ml STK-MED ONCE IV 11/30/16 07:26 11/30/16 07:27 DC Pantoprazole Sodium (Protonix) 40 mg 1X ONCE PO 11/30/16 13:20 11/30/16 13:21 DC 11/30/16 13:45 Orders Procedure Category Date Status Time Vital Signs ER 11/30/16 Transmitted 00:13 Bp Monitoring ER 11/30/16 Transmitted 00:13 Hose Mender ER 11/30/16 Transmitted 00:13 Continuous Pulse ER 11/30/16 Transmitted Oximetry 00:13 Saline Lock ER 11/30/16 Transmitted 00:13 Cbc W Autodiff LAB 11/30/16 Complete 00:13 Ua, Cult If Indicated LAB 11/30/16 Complete 00:13 Lipase LAB 11/30/16 Complete 00:13 Drugs Of Abuse Ur LAB 11/30/16 Complete 00:13 Comprehensive LAB 11/30/16 Complete Metabolic Panel 00:13 Pulse Oximetry: VIKI 11/30/16 In Process Standing Order 00:13 Iv Normal Saline PHA 11/30/16 Complete 1,000ml (Iv Sodium 00:30 Ondansetron Pf PHA 11/30/16 Complete (Zofran) 00:30 Lactic Acid LAB 11/30/16 Complete 01:13 Hiv Antibody LAB 11/30/16 In Process 01:13 Iohexol 300 Mg/Ml PHA 11/30/16 Complete (Omnipaque 300 Mg/Ml) 03:00 Mononucleosis Screen LAB 11/30/16 Complete 01:47 Strep A Screen Rapid LAB 11/30/16 Complete 01:47 Throat Culture TINA 11/30/16 In Process 01:49 Contrast Given (Do PHA 11/30/16 In Process Not Chart On This Ent 03:00 Ct Abdomen Pelvis Wo CT 11/30/16 Resulted Contrast 01:23 Potassium Chloride PHA 11/30/16 Complete Oral Soln (Kcl Oral S 04:45 Ondansetron Odt PHA 11/30/16 Complete (Zofran Odt) 04:30 Iv Normal Saline PHA 11/30/16 Complete 1,000ml (Iv Sodium 04:30 Mvi, Adult No.4 With PHA 11/30/16 Complete Vit K (Infuvite Rafiq 05:45 [place] Order ADT 11/30/16 Transmitted 05:04 Code Status CODE 11/30/16 Transmitted 05:04 Vital Signs, Per VIKI 11/30/16 In Process Protocol 05:04 Advance Diet As VIKI 11/30/16 In Process Tolerated 05:04 Clear Liquid Diet DIET 11/30/16 Complete Breakfast Ambulate Ad Tiffany VIKI 11/30/16 In Process 05:04 Ondansetron Pf PHA 11/30/16 In Process (Zofran) 05:30 Iv Normal Saline PHA 11/30/16 In Process 1,000ml (Iv Sodium 05:15 Acetaminophen PHA 11/30/16 In Process (Tylenol) 05:30 Dicyclomine Hcl PHA 11/30/16 In Process (Bentyl) 05:30 Ketorolac (Toradol) PHA 11/30/16 In Process 05:30 Mvi, Adult No.4 With PHA 11/30/16 Complete Vit K (Infuvite Rafiq 07:26 Magnesium LAB 11/30/16 Complete 07:50 Admit Orders ADT 11/30/16 Transmitted Comprehensive LAB 11/30/16 Logged Metabolic Panel 12:00 Notify Provider No VIKI 11/30/16 In Process Vte Prophyl 10:47 High Risk Dc CONS 11/30/16 Transmitted Readmission 11:00 Admission Screening CONS 11/30/16 Transmitted 11:00 Acute Hepatitis Panel LAB 11/30/16 In Process 12:59 Pantoprazole PHA 11/30/16 Complete (Protonix) 13:20 Soft Diet DIET 11/30/16 Transmitted Dinner Vital Signs Date Time Temp Pulse Resp B/P (MAP) Pulse Ox O2 Delivery O2 Flow Rate FiO2 11/30/16 10:26 98.6 57 20 129/83 (98) 99 Room Air SELIN DURON DO Nov 30, 2016 14:21
[2016-11-30 14:35] LABS: ALBUMIN 4.4 g/dL (3.4-5.0); ALBUMIN/GLOBULIN RATIO 1.1 (1.0-1.7); CALCIUM 8.9 mg/dL (8.5-10.1); CREATININE 1.1 mg/dL (0.7-1.3); GFR 80.3; POTASSIUM 3.4 mmol/L (3.5-5.1); TOTAL BILIRUBIN 1.9 mg/dL (0.2-1.0); TOTAL PROTEIN 8.4 g/dL (6.4-8.2)
[2016-11-30 15:03] VITALS: BP 116/66
[2016-11-30] MEDS ORDERED: PROMETHAZINE 25 MG SUPP.RECT. PR PRN (15:15)
[2016-11-30] MEDS ORDERED: PROMETHAZINE 25 MG TABLET. PO PRN (15:15)
[2016-11-30] MEDS ORDERED: diphenhydrAMINE 50 MG/ML VIAL IVP PRN (15:15)
[2016-11-30] MEDS ORDERED: PROMETHAZINE 25 MG SUPP.RECT. PR ONE (15:15)
[2016-11-30] MEDS ORDERED: ONDANSETRON ODT 4 MG TAB.RAPDIS PO PRN (15:15)
[2016-11-30] MEDS ORDERED: PYRIDOXINE 100 MG/ML VIAL. IV ONE (15:30)
[2016-11-30] MEDS ORDERED: HALOPERIDOL LACT 5 MG/ML VIAL. IVP PRN (16:00)
[2016-11-30] MEDS: IV RINGERS SOLUTION,LACTATED 1,000 ML IV SCH (17:13)
[2016-11-30 19:00] VITALS: BP 115/74
--- NOTE | 2016-11-30 20:03 | EKG ---
[address] [address] Test Date: 2016-11-30 Test Time: 18:47:38 Pat Name: KAYLEE HEBERT Department: Room: 124 A Gender: M Regional Guide: : 1990 Requested By: SELIN DURON Order Number: [id number] Reading MD: Measurements Intervals [place] Rate: 61 P: 75 WV: 156 QRS: 82 QRSD: 90 T: 74 QT: 460 QTc: 465 Interpretive Statements SINUS RHYTHM QRS(T) CONTOUR ABNORMALITY CONSIDER ANTEROSEPTAL MYOCARDIAL DAMAGE POSSIBLY ABNORMAL ECG RI6.01 Unconfirmed report No previous ECG available for comparison
[2016-11-30] MEDS ORDERED: PANTOPRAZOLE IV PUSH 40 MG VIAL. IVP SCH (21:00)
[2016-11-30 22:41] VITALS: BP 115/64
[2016-12-01] MEDS: IV RINGERS SOLUTION,LACTATED 1,000 ML IV SCH ×2 (00:03→05:10)
[2016-12-01 03:20] LABS: HCV ANTIBODY >11.0 s/co ratio (0.0-0.9); HEP A IGM ABDY Negative (Negative)
[2016-12-01 05:08] VITALS: BP 110/68
[2016-12-01 06:32] LABS: BASO % 1 % (0-3); EOS # 0.1 x10^3/uL (0.0-0.7); EOS % 2 % (0-3); HEMATOCRIT 39.7 % (39.0-53.0); HEMOGLOBIN 13.7 g/dL (13.0-17.5); LYMPH # 1.5 x10^3/uL (1.0-4.8); LYMPH % 26 % (24-48); MEAN CORPUSCULAR HEMOGLOBIN 30 pg (25-35); MEAN CORPUSCULAR HGB CONC 35 g/dL (31-37); MEAN CORPUSCULAR VOLUME 87 fL (79-100); MONO # 0.6 x10^3/uL (0.0-1.1); MONO % 11 % (0-9); NEUT # 3.5 x10^3uL (1.8-7.7); NEUT % 61 % (31-73); PLATELET COUNT 198 x10^3/uL (140-400); RED BLOOD COUNT 4.56 x10^6/uL (4.30-5.70); RED CELL DISTRIBUTION WIDTH 12.8 % (11.5-14.5); WHITE BLOOD COUNT 5.7 x10^3/uL (4.0-11.0)
[2016-12-01 06:44] LABS: ALBUMIN 3.4 g/dL (3.4-5.0); CALCIUM 8.4 mg/dL (8.5-10.1); CREATININE 1.1 mg/dL (0.7-1.3); GFR 80.3; MAGNESIUM 2.3 mg/dL (1.8-2.4); POTASSIUM 3.4 mmol/L (3.5-5.1); TOTAL BILIRUBIN 1.5 mg/dL (0.2-1.0); TOTAL PROTEIN 6.7 g/dL (6.4-8.2)
[2016-12-01 10:44] VITALS: BP 107/60
--- NOTE | 2016-12-01 12:47 | PDOC3 ---
Discharge Summary Visit Information Date of Admission: Nov 30, 2016 Date of Discharge: Dec 01, 2016 Admitting Diagnosis: intractable nausea and vomiting Final Diagnosis Problems Medical Problems: (1) Cocaine abuse Status: Acute (2) Hepatosplenomegaly Status: Acute (3) Intractable nausea and vomiting Status: Acute (4) IVDU (intravenous drug user) Status: Acute #5 positive hepatitis C antibody 6 transaminitis #7 heroin abuse Problems: Brief Hospital Course Allergies Allergies Coded Allergies Type Severity Reaction Last Updated Verified No Known Drug Allergies 11/29/16 No Vital Signs Vital Signs Date Time Temp Pulse Resp B/P (MAP) Pulse Ox O2 Delivery O2 Flow Rate FiO2 12/01/16 10:44 98.3 56 20 107/60 (76) 99 Room Air Lab Results Laboratory Tests Test 11/30/16 01:45 11/30/16 01:49 11/30/16 01:55 11/30/16 14:03 Urine Collection Type Unknown Urine Color Yellow Urine Clarity Clear Urine pH 7.0 Urine Specific [place] 1.015 Urine Protein 30 mg/dl (NEG-TRACE) Urine Glucose (UA) Neg mg/dL (NEG) Urine Ketones (Stick) Neg mg/dL (NEG) Urine Blood Neg (NEG) Urine Nitrite Neg (NEG) Urine Bilirubin Neg (NEG) Urine Urobilinogen Dipstick 2 mg/dL (0.2 mg/dL) Urine Leukocyte Esterase Neg (NEG) Urine RBC 0 /HPF (0-2) Urine WBC 1-4 /HPF (0-4) Urine Squamous Epithelial Cells Occ /LPF Urine Bacteria 0 /HPF (0-FEW) Urine Opiates Screen Pos (NEG) Urine Methadone Screen Neg (NEG) Urine Barbiturates Neg (NEG) Urine Phencyclidine Screen Neg (NEG) Urine Amphetamine/Methamphetamine Neg (NEG) Urine Benzodiazepines Screen Neg (NEG) Urine Cocaine Screen Pos (NEG) Urine Cannabinoids Screen Neg (NEG) Urine Ethyl Alcohol Neg (NEG) Group A Streptococcus Rapid Negative (NEGATIVE) White Blood Count 9.1 x10^3/uL (4.0-11.0) Red Blood Count 5.57 x10^6/uL (4.30-5.70) Hemoglobin 16.9 g/dL (13.0-17.5) Hematocrit 48.1 % (39.0-53.0) Mean Corpuscular Volume 86 fL (79-100) Mean Corpuscular Hemoglobin 30 pg (25-35) Mean Corpuscular Hemoglobin Concent 35 g/dL (31-37) Red Cell Distribution Width 12.6 % (11.5-14.5) Platelet Count 268 x10^3/uL (140-400) Neutrophils (%) (Auto) 69 % (31-73) Lymphocytes (%) (Auto) 19 % (24-48) Monocytes (%) (Auto) 11 % (0-9) Eosinophils (%) (Auto) 0 % (0-3) Basophils (%) (Auto) 1 % (0-3) Neutrophils # (Auto) 6.3 x10^3uL (1.8-7.7) Lymphocytes # (Auto) 1.8 x10^3/uL (1.0-4.8) Monocytes # (Auto) 1.0 x10^3/uL (0.0-1.1) Eosinophils # (Auto) 0.0 x10^3/uL (0.0-0.7) Basophils # (Auto) 0.1 x10^3/uL (0.0-0.2) Sodium Level 140 mmol/L (136-145) 140 mmol/L (136-145) Potassium Level 3.2 mmol/L (3.5-5.1) 3.4 mmol/L (3.5-5.1) Chloride Level 98 mmol/L (98-107) 101 mmol/L (98-107) Carbon Dioxide Level 33 mmol/L (21-32) 34 mmol/L (21-32) Anion Gap 9 (6-14) 5 (6-14) Blood Urea Nitrogen 30 mg/dL (8-26) 31 mg/dL (8-26) Creatinine 1.1 mg/dL (0.7-1.3) 1.1 mg/dL (0.7-1.3) Estimated GFR (Cockcroft-Gault) 80.3 80.3 BUN/Creatinine Ratio 27 (6-20) 28 (6-20) Glucose Level 126 mg/dL (70-99) 108 mg/dL (70-99) Lactic Acid Level 0.8 mmol/L (0.4-2.0) Calcium Level 9.5 mg/dL (8.5-10.1) 8.9 mg/dL (8.5-10.1) Magnesium Level 2.4 mg/dL (1.8-2.4) Total Bilirubin 1.9 mg/dL (0.2-1.0) 1.9 mg/dL (0.2-1.0) Aspartate Amino Transf (AST/SGOT) 48 U/L (15-37) 59 U/L (15-37) Alanine Aminotransferase (ALT/SGPT) 55 U/L (16-63) 74 U/L (16-63) Alkaline Phosphatase 168 U/L (46-116) 161 U/L (46-116) Total Protein 8.7 g/dL (6.4-8.2) 8.4 g/dL (6.4-8.2) Albumin 4.6 g/dL (3.4-5.0) 4.4 g/dL (3.4-5.0) Albumin/Globulin Ratio 1.1 (1.0-1.7) 1.1 (1.0-1.7) Lipase 99 U/L (73-393) Hepatitis A IgM Antibody Negative (Negative) Hepatitis B Surface Antigen Negative (Negative) Hepatitis B Core IgM Antibody Negative (Negative) Hepatitis C Antibody >11.0 s/co ratio Heterophil Agglutinins Negative (NEGATIVE) HIV-1 Antibody Non reactive (Non Reactive) Creatine Kinase 45 U/L (39-308) Troponin I Quantitative < 0.017 ng/mL (0-0.055) Test 12/01/16 05:57 White Blood Count 5.7 x10^3/uL (4.0-11.0) Red Blood Count 4.56 x10^6/uL (4.30-5.70) Hemoglobin 13.7 g/dL (13.0-17.5) Hematocrit 39.7 % (39.0-53.0) Mean Corpuscular Volume 87 fL (79-100) Mean Corpuscular Hemoglobin 30 pg (25-35) Mean Corpuscular Hemoglobin Concent 35 g/dL (31-37) Red Cell Distribution Width 12.8 % (11.5-14.5) Platelet Count 198 x10^3/uL (140-400) Neutrophils (%) (Auto) 61 % (31-73) Lymphocytes (%) (Auto) 26 % (24-48) Monocytes (%) (Auto) 11 % (0-9) Eosinophils (%) (Auto) 2 % (0-3) Basophils (%) (Auto) 1 % (0-3) Neutrophils # (Auto) 3.5 x10^3uL (1.8-7.7) Lymphocytes # (Auto) 1.5 x10^3/uL (1.0-4.8) Monocytes # (Auto) 0.6 x10^3/uL (0.0-1.1) Eosinophils # (Auto) 0.1 x10^3/uL (0.0-0.7) Basophils # (Auto) 0.0 x10^3/uL (0.0-0.2) Sodium Level 141 mmol/L (136-145) Potassium Level 3.4 mmol/L (3.5-5.1) Chloride Level 105 mmol/L (98-107) Carbon Dioxide Level 31 mmol/L (21-32) Anion Gap 5 (6-14) Blood Urea Nitrogen 24 mg/dL (8-26) Creatinine 1.1 mg/dL (0.7-1.3) Estimated GFR (Cockcroft-Gault) 80.3 BUN/Creatinine Ratio 22 (6-20) Glucose Level 112 mg/dL (70-99) Calcium Level 8.4 mg/dL (8.5-10.1) Magnesium Level 2.3 mg/dL (1.8-2.4) Total Bilirubin 1.5 mg/dL (0.2-1.0) Aspartate Amino Transf (AST/SGOT) 62 U/L (15-37) Alanine Aminotransferase (ALT/SGPT) 80 U/L (16-63) Alkaline Phosphatase 128 U/L (46-116) Total Protein 6.7 g/dL (6.4-8.2) Albumin 3.4 g/dL (3.4-5.0) Albumin/Globulin Ratio 1.0 (1.0-1.7) Brief Hospital Course Mr. Cortes is a 26 oldmale who presented with [intractable nausea, vomiting, and abdominal pain. Subsequent workup including a CAT scan of the abdomen and pelvis revealed hepatosplenomegaly. Hepatitis screen antibody was positive. Hepatitis B was negative. His HIV was negative. He was treated with a myriad of antibiotics, IV fluids and his nausea and pain resolved on the morning of 12/01. I advised him of his positive hepatitis C status and the need to have a confirmatory check done as an outpatient. I advised him of his enlarged liver and spleen. Strongly encouraged him to not use drugs again. This would be imperative as he states that if he is positive as above if if he has a positive drug screen this coming Saturday. He will go to long term for 10 years. Also told him about [facility] here in [place] that he may benefit from getting his care there until he can get his own insurance. Discharge Information Condition at Discharge: Improved Follow Up: Weeks Disposition/Orders: D/C to Home Dischare Medications Current Medications Sodium Chloride 1,000 ml @ 1,000 mls/hr Q1H IV Last administered on 11/30/16 02:50; Start 11/30/16 at 00:30; Stop 11/30/16 at 02:49; Status DC Ondansetron HCl (Zofran) 4 mg 1X ONCE IV Last administered on 11/30/16 02:50 ; Start 11/30/16 at 00:30; Stop 11/30/16 at 02:49; Status DC Iohexol (Omnipaque 300 Mg/ml) 75 ml 1X ONCE IV ; Start 11/30/16 at 03:00; Stop 11/30/16 at 03:01; Status DC Info (Do NOT chart on this entry -- for MONITORING) 1 each PRN DAILY PRN MC SEE COMMENTS; Start 11/30/16 at 03:00; Stop 12/02/16 at 02:59 Potassium Chloride (KCl Oral Soln) 40 meq 1X ONCE PO Last administered on 11/30 04:44; Start 11/30/16 at 04:45; Stop 11/30/16 at 04:46; Status DC Ondansetron HCl (Zofran Odt) 4 mg 1X ONCE PO Last administered on 11/30/16 04 :30; Start 11/30/16 at 04:30; Stop 11/30/16 at 04:44; Status DC Sodium Chloride 1,000 ml @ 1,000 mls/hr 1X ONCE IV Last administered on 04:30; Start 11/30/16 at 04:30; Stop 11/30/16 at 05:29; Status DC Multivitamins/ Minerals 10 ml/ Folic Acid 1 mg/ Thiamine HCl 100 mg/Potassium Chloride 40 meq/ Dextrose/Sodium Chloride 1,031.2 ml @ 125 mls/ hr 1X ONCE IV Last administered on 11/30/16 07:49; Start 11/30/16 at 05:45; Stop 11/30/16 at 13:59; Status DC Ondansetron HCl (Zofran) 4 mg PRN Q4HRS PRN IV NAUSEA/VOMITING Last administered on 11/30/16 12:03; Start 11/30/16 at 05:30; Stop 12/01/16 at 05:29 ; Status DC Sodium Chloride 1,000 ml @ 125 mls/hr Q8H IV Last administered on 11/30/16 07 :50; Start 11/30/16 at 05:15; Stop 11/30/16 at 17:13; Status DC Acetaminophen (Tylenol) 650 mg PRN Q4HRS PRN PO FEVER; Start 11/30/16 at 05:30 ; Stop 12/01/16 at 05:29; Status DC Dicyclomine HCl (Bentyl) 20 mg PRN QID PRN PO ABDOMINAL PAIN Last administered on 11/30/16 12:03; Start 11/30/16 at 05:30 Ketorolac Tromethamine (Toradol) 10 mg PRN Q6HRS PRN IV PAIN Last administered on 11/30/16 19:15; Start 11/30/16 at 05:30; Stop 12/05/16 at 05:29 Multivitamins/ Minerals (Infuvite Adult) 10 ml STK-MED ONCE IV ; Start 11/30/16 at 07:26; Stop 11/30/16 at 07:27; Status DC Pantoprazole Sodium (Protonix) 40 mg 1X ONCE PO Last administered on 13:45; Start 11/30/16 at 13:20; Stop 11/30/16 at 13:21; Status DC Ondansetron HCl (Zofran Odt) 6 mg PRN Q8HRS PRN PO NAUSEA/VOMITING; Start 11/30 at 15:15 Promethazine HCl (Phenergan) 25 mg 1X ONCE MN ; Start 11/30/16 at 15:15; Stop 11/30/16 at 15:37; Status DC Promethazine HCl (Phenergan) 25 mg PRN Q6HRS PRN MN NAUSEA/VOMITING; Start at 15:15 Promethazine HCl (Phenergan) 25 mg PRN Q6HRS PRN PO NAUSEA/VOMITING; Start at 15:15 Diphenhydramine HCl (Benadryl) 25 mg PRN Q6HRS PRN IVP ITCHING Last administered on 11/30/16 15:46; Start 11/30/16 at 15:15 Pyridoxine HCl (Vitamin B6) 100 mg 1X ONCE IV Last administered on 11/30/16 15:46; Start 11/30/16 at 15:30; Stop 11/30/16 at 15:37; Status DC Pantoprazole Sodium (Protonix Vial) 40 mg HS IVP Last administered on 21:25; Start 11/30/16 at 21:00 Lactated Ringer's 1,000 ml @ 150 mls/hr Q6H40M IV Last administered on 05:10; Start 11/30/16 at 16:10 Haloperidol Lactate (Haldol) 2.5 mg PRN Q6HRS PRN IVP AGITATION Last administered on 11/30/16 19:16; Start 11/30/16 at 16:00 Active Scripts Active Zofran Odt (Ondansetron) 8 Mg Tab.rapdis 4 Mg PO Q4-6HRS PRN Patient Instructions Patient Instuctions Typewritten instructions were done on the electronic medical record. These were typed out by myself by myself SELIN DURON DO Dec 01, 2016 12:47
== END 2016-12-01 12:43 | disposition home or self-care (01) | DRG 897 ==
LOC: ER 23:44 → 1 SOUTH 11-30 05:19
PROVIDERS: ADMIT Family Medicine; ATTEND Family Medicine
DX: F14.10 Cocaine abuse, uncomplicated (principal); R16.2 Hepatomegaly with splenomegaly, not elsewhere classified; B19.20 Unspecified viral hepatitis C without hepatic coma; E87.6 Hypokalemia; F11.10 Opioid abuse, uncomplicated; F17.210 Nicotine dependence, cigarettes, uncomplicated; R63.4 Abnormal weight loss; R74.0 Nonspecific elevation of levels of transaminase and lactic acid dehydrogenase [LDH]; Z68.20 Body mass index [BMI] 20.0-20.9, adult
CPT/HCPCS: 36415; 74176; 80053; 80074; 81001; 82550; 83605; 83690; 83735; 84484; 85027; 86308; 86703; 87070; 87880; 93005; 96361; 96374; C9113; G0481; J1200; J1630; J1885; J2405; J3415; J7120; Q0162; 99285-25; J7030

== ENCOUNTER 2017-03-06 18:37 | Inpatient (IN) | payer SELFPAY ==
[~2017-03-06] VITALS: Ht 182.9 cm; Wt 61.0 kg
--- NOTE | 2017-03-06 18:40 | PHYS DOC ---
Past History Past Medical History: No Pertinent History Past Surgical History: No Surgical History Alcohol Use: Rarely Drug Use: Cocaine, Heroin, Marijuana Adult General Chief Complaint Chief Complaint: cocaine and heroin withdrawal HPI HPI Patient is a 26 year old male who presents with cocaine and heroin withdrawal. Last time he used was Saturday and his been trying to get clean since then. He states he's had uncontrolled nausea and vomiting since then. He also complains about left-sided chest pain that goes into his abdominal area. He states his been constant since he started withdrawing. He states nothing makes it better or worse. He denies any shortness of breath. He states that he can do this anymore that the sensation of withdrawing is unbearable. He states he's only urinated twice since Saturday. He states he has a history of hepatitis. He states he's been through rehabilitation once before. He states over the last month he's been doing coke and heroin IV daily. He states he was having some diarrhea but this is resolved now. Review of Systems Review of Systems Constitutional: Denies fever or chills [] Eyes: Denies change in visual acuity, redness, or eye pain [] HENT: Denies nasal congestion or sore throat [] Respiratory: Denies cough or shortness of breath [] Cardiovascular: No additional information not addressed in HPI [] GI: Denies abdominal pain, nausea, vomiting, bloody stools or diarrhea [] : Denies dysuria or hematuria [] Musculoskeletal: Denies back pain or joint pain [] Integument: Denies rash or skin lesions [] Neurologic: Denies headache, focal weakness or sensory changes [] Endocrine: Denies polyuria or polydipsia [] Allergies Allergies Allergies Coded Allergies Type Severity Reaction Last Updated Verified No Known Drug Allergies 11/29/16 No Physical Exam Physical Exam Constitutional: Well developed, well nourished, no acute distress, non-toxic appearance. [] HENT: Normocephalic, atraumatic, bilateral external ears normal, oropharynx moist, no oral exudates, nose normal. [] Eyes: PERRLA, EOMI, conjunctiva normal, no discharge. [] Neck: Normal range of motion, no tenderness, supple, no stridor. [] Cardiovascular:Heart rate regular rhythm, no murmur [] Lungs & Thorax: Bilateral breath sounds clear to auscultation [] Abdomen: Bowel sounds normal, soft, no tenderness, no masses, no pulsatile masses. [] Skin: Warm, dry, no erythema, no rash. [] Back: No tenderness, no CVA tenderness. [] Extremities: No tenderness, no cyanosis, no clubbing, ROM intact, no edema. [] Neurologic: Alert and oriented X 3, normal motor function, normal sensory function, no focal deficits noted. [] Psychologic: Affect normal, judgement normal, mood normal. [] EKG EKG EKG shows sinus rhythm rate of [address] elevations or T-wave inversions, normal axis, QTC 452 ms, as interpreted by me. Radiology/Procedures Radiology/Procedures Abdominal series does not show any focal consolidations, pneumothorax, bony abnormality's in the chest, 2 views of the abdomen does not show any air-fluid levels, air under the diaphragms, bony abnormalities, foreign bodies, as interpreted by me. Impressions: Cocaine and heroin withdrawal Hypokalemia Nausea vomiting Dehydration Course & Med Decision Making Course & Med Decision Making Pertinent Labs and Imaging studies reviewed. (See chart for details) Patient's symptoms improved after IV hydration. His potassium is 3.0. We'll start IV potassium replacement continue antinausea meds. We'll add on a magnesium level. Spoke with Dr. Sheriff who accepts the patient for admission secondary to his cocaine/heroin withdrawal symptoms and his hypokalemia. Patient 's in stable condition this time. Dragon Disclaimer Dragon Disclaimer This chart was dictated in whole or in part using Voice Recognition software in a busy, high-work load, and often noisy Emergency Department environment. It may contain unintended and wholly unrecognized errors or omissions. Departure Departure: Impression: Primary Impression: Heroin abuse Disposition: ADMITTED INPATIENT Admitting Physician: Tamia Sheriff Condition: STABLE Referrals: PCP,NO (PCP) RAEANN LY MD Mar 06, 2017 18:40
[2017-03-06] MEDS ORDERED: IV NORMAL SALINE 1,000ML 1,000 ML IV SCH (19:15)
--- NOTE | 2017-03-06 19:29 | EKG ---
[address] [address] Test Date: 2017-03-06 Test Time: 19:07:07 Pat Name: KAYLEE HEBERT Department: Room: Gender: M Data Coordinator: : 1990 Requested By: RAEANN LY Order Number: [id number] Reading MD: Measurements Intervals [place] Rate: 82 P: 78 WV: 154 QRS: 87 QRSD: 92 T: 82 QT: 386 QTc: 454 Interpretive Statements SINUS RHYTHM RIGHT ATRIAL ENLARGEMENT T ABNORMALITY IN INFERIOR LEADS ABNORMAL ECG RI6.01 No previous ECG available for comparison
[2017-03-06] MEDS ORDERED: ONDANSETRON PF 4 MG/2 ML VIAL. IV ONE (19:30)
[2017-03-06] MEDS ORDERED: MVI, ADULT NO.4 WITH VIT K 10 ML, FOLIC ACID SYRINGE for ER 1 MG, THIAMINE 100 MG in IV... IV ONE ×4 (20:30)
[2017-03-06 21:51] LABS: BASO # 0.1 x10^3/uL (0.0-0.2); BASO % 1 % (0-3); EOS % 0 % (0-3); HEMATOCRIT 42.6 % (39.0-53.0); LYMPH # 1.5 x10^3/uL (1.0-4.8); LYMPH % 16 % (24-48); MEAN CORPUSCULAR HEMOGLOBIN 30 pg (25-35); MEAN CORPUSCULAR HGB CONC 35 g/dL (31-37); MEAN CORPUSCULAR VOLUME 85 fL (79-100); MONO # 1.1 x10^3/uL (0.0-1.1); MONO % 12 % (0-9); NEUT # 6.7 x10^3uL (1.8-7.7); NEUT % 71 % (31-73); PLATELET COUNT 259 x10^3/uL (140-400); RED BLOOD COUNT 5.04 x10^6/uL (4.30-5.70); RED CELL DISTRIBUTION WIDTH 13.2 % (11.5-14.5); WHITE BLOOD COUNT 9.4 x10^3/uL (4.0-11.0)
[2017-03-06 22:02] LABS: ACETAMIN < 2.0 mcg/mL (10-30); ETHANOL < 10 mg/dL (0-10); SALIC < 0.2 mg/dL (2.8-20.0)
[2017-03-06 22:09] LABS: ALBUMIN 4.8 g/dL (3.4-5.0); ALK PHOS 235 U/L (46-116); ALT (SGPT) 75 U/L (16-63); ANION GAP 6 (6-14); AST (SGOT) 56 U/L (15-37); BLOOD UREA NITROGEN 38 mg/dL (8-26); CALCIUM 9.3 mg/dL (8.5-10.1); CARBON DIOXIDE 39 mmol/L (21-32); CHLORIDE 93 mmol/L (98-107); CREATINE KINASE 49 U/L (39-308); CREATININE 1.3 mg/dL (0.7-1.3); DIRECT BILIRUBIN 0.4 mg/dL (0.0-0.2); GFR 66.2; GLUCOSE 119 mg/dL (70-99); LIPASE 186 U/L (73-393); SODIUM 138 mmol/L (136-145); TOTAL BILIRUBIN 1.2 mg/dL (0.2-1.0); TOTAL PROTEIN 9.4 g/dL (6.4-8.2)
[2017-03-06] MEDS ORDERED: IV DEXTROSE 5 %-0.45 % NACL 1,000 ML IV ONE (22:45)
[2017-03-06] MEDS ORDERED: ONDANSETRON PF 4 MG/2 ML VIAL. IV PRN (22:45)
[2017-03-06 23:10] LABS: BARBITURATES NEG (NEG); BENZODIAZEPINES NEG (NEG); CANNABINOIDS NEG (NEG); COCAINE POS (NEG); METHADONE NEG (NEG); OPIATES NEG (NEG); PHENCYCLIDINE NEG (NEG)
[2017-03-06 23:17] LABS: AMPHETAMINE/METHAMPHETAMINE NEG (NEG)
[2017-03-06 23:22] LABS: BILIRUBIN,URINE NEG (NEG); CLARITY,URINE CLEAR; COLOR,URINE AMBER; GLUCOSE,URINE NEG (NEG); NITRITE,URINE NEG (NEG); UROBILINOGEN,URINE 0.2 mg/dL (0.2 mg/dL)
[2017-03-06 23:23] LABS: BACTERIA,URINE FEW /HPF (0-FEW); HYALINE CASTS, URINE OCC /HPF; RBC,URINE 0 /HPF (0-2); SQUAMOUS EPITHELIAL CELL,UR OCC /LPF; WBC,URINE OCC /HPF (0-4)
[2017-03-06 23:44] VITALS: BP 124/74
[2017-03-06] MEDS: POTASSIUM CHLORIDE 10MEQ 100 ML IV SCH (23:53)
[2017-03-07] MEDS: POTASSIUM CHLORIDE 10MEQ 100 ML IV SCH ×3 (00:41→02:19)
[2017-03-07] MEDS ORDERED: Influenza vaccine per PROTOCOL. MC PRN (01:00)
[2017-03-07 01:23] VITALS: BP 120/83
[2017-03-07 03:23] VITALS: BP 116/80
[2017-03-07] MEDS ORDERED: PANTOPRAZOLE IV PUSH 40 MG VIAL. IVP ONE (03:45)
[2017-03-07] MEDS ORDERED: PROMETHAZINE 12.5 MG in IV NORMAL SALINE 50ML 50 ML IV PRN (03:45)
[2017-03-07] MEDS ORDERED: LORazepam 2 MG/ML VIAL IV ONE (03:45)
[2017-03-07] MEDS ORDERED: IV NORMAL SALINE 50ML 50 ML ONE (04:10)
[2017-03-07] MEDS ORDERED: PROMETHAZINE 25 MG/ML VIAL IV ONE (04:10)
[2017-03-07 06:07] VITALS: BP 108/73
[2017-03-07 06:45] LABS: CALCIUM 8.9 mg/dL (8.5-10.1); CREATININE 0.9 mg/dL (0.7-1.3); GFR 101.2; POTASSIUM 3.2 mmol/L (3.5-5.1)
[2017-03-07 07:09] LABS: BASO % 0 % (0-3); EOS % 0 % (0-3); HEMATOCRIT 44.2 % (39.0-53.0); HEMOGLOBIN 15.4 g/dL (13.0-17.5); LYMPH # 1.7 x10^3/uL (1.0-4.8); LYMPH % 19 % (24-48); MEAN CORPUSCULAR HEMOGLOBIN 30 pg (25-35); MEAN CORPUSCULAR HGB CONC 35 g/dL (31-37); MEAN CORPUSCULAR VOLUME 85 fL (79-100); MONO % 11 % (0-9); NEUT # 6.3 x10^3uL (1.8-7.7); NEUT % 70 % (31-73); PLATELET COUNT 293 x10^3/uL (140-400); RED BLOOD COUNT 5.21 x10^6/uL (4.30-5.70); RED CELL DISTRIBUTION WIDTH 13.2 % (11.5-14.5); WHITE BLOOD COUNT 8.9 x10^3/uL (4.0-11.0)
--- NOTE | 2017-03-07 07:32 | RAD ---
Acute abdominal series Indication: Chest abdominal pain Technique: Acute abdominal series x-rays Comparison: Previous study from 11/29/2016 Findings: Heart is normal in size. Lungs are clear. No pneumothorax or pleural effusion. No free intraperitoneal air. No abnormally dilated bowel loops or air-fluid levels. Liver is mildly enlarged in size. Visualized bones are within normal limits. No calcific densities projecting over the kidneys to suggest renal stones. Impression: No acute findings.
[2017-03-07] MEDS ORDERED: DICYCLOMINE HCL 10 MG CAPSULE PO PRN (08:30)
[2017-03-07] MEDS ORDERED: METHOCARBAMOL 750 MG TABLET PO PRN (08:30)
[2017-03-07] MEDS ORDERED: PANTOPRAZOLE 40 MG TABLET. PO SCH (08:45)
[2017-03-07] MEDS ORDERED: FLU VACC QS2017-18 (36MOS+)/PF 0.5 ML SYRINGE. VAX IM ONE (09:00)
[2017-03-07 10:12] LABS: ALBUMIN 4.2 g/dL (3.4-5.0); MAGNESIUM 2.5 mg/dL (1.8-2.4); TOTAL BILIRUBIN 1.3 mg/dL (0.2-1.0); TOTAL PROTEIN 7.9 g/dL (6.4-8.2)
[2017-03-07 10:32] LABS: DIRECT BILIRUBIN 0.3 mg/dL (0.0-0.2)
[2017-03-07 11:00] VITALS: BP 116/72
[2017-03-07] MEDS ORDERED: PROC5TAB34 PO (13:38)
[2017-03-07] MEDS ORDERED: OMEP20TA63 PO (13:38)
[2017-03-07] MEDS ORDERED: DICY10CA53 PO (13:38)
--- NOTE | 2017-03-07 15:32 | SSS ---
ADMIT DATE: 03/07/2017 DISCHARGE DIAGNOSES: 1. Heroin and cocaine withdrawal. 2. Nausea and vomiting. 3. Positive for hepatitis C. 4. Hypokalemia. 5. Elevated liver function tests secondary to hepatitis C. HOSPITAL COURSE: A 26-year-old male who presented to the Emergency Room after going on his own, 5 days without heroin and cocaine. He had severe nausea and vomiting and chills and abdominal pain. His acute abdominal series was negative. He was hydrated and received antiemetics and was able to keep down some chicken noodle soup and clear liquids prior to discharge. PAST MEDICAL HISTORY: Significant for longstanding elliott with heroin and cocaine abuse, hepatitis C. SOCIAL HISTORY: Lives with his family. 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 REVIEW OF SYSTEMS: As per HPI. OBJECTIVE: VITAL SIGNS: Blood pressure 116/72, pulse 62, respirations 20, pulse ox 98% on room air. Height 72 inches, weight 134.37 pounds. GENERAL: A 26-year-old in no acute distress. HEENT: His hearing is normal. His eyes are clear. Tongue is now moist. NECK: Supple. LUNGS: Clear. CARDIOVASCULAR: Regular rhythm and rate. ABDOMEN: Soft, mild midepigastric tenderness. EXTREMITIES: Without edema. SKIN: Multiple areas on the skin from IV injection noted on his arms. LABORATORY DATA: Normal CBC, elevated liver function tests. Potassium is 3.2. Urine negative. PLAN: Discussed with the family, they feel that the corporation officer could possibly get him into some rehabilitation, which he really needs. We did transfer some Compazine, Bentyl and Prilosec to the pharmacy and encouraged him to strongly not to resume his drug use and he was given information on Narcotics Anonymous. He will be discharged home in the care of his parents. SELIN DURON DO DR: RAFAEL/manuel JOB#: [id number] / [id number]
== END 2017-03-07 18:00 | disposition home or self-care (01) | DRG 897 ==
LOC: ER 18:37 → ICU 22:30 → OBSVTOIN 03-07 08:18
PROVIDERS: ADMIT Family Medicine; ATTEND Family Medicine
DX: F11.23 Opioid dependence with withdrawal (principal); B19.20 Unspecified viral hepatitis C without hepatic coma; F14.23 Cocaine dependence with withdrawal; E87.6 Hypokalemia; F17.210 Nicotine dependence, cigarettes, uncomplicated; R74.8 Abnormal levels of other serum enzymes
CPT/HCPCS: 36415; 74022; 80048; 80076; 80307; 81001; 82553; 83690; 83735; 84436; 84484; 85025; 85610; 85730; 87641; 90686; 93005; 96361; 96365; 96366; 96368; 96375; 96376; C9113; G0378; G0379; G0480; J2060; J2405; J2550; J3480; 99285-25; G0479; J7030